=== PATIENT | male | born 1995 | race Caucasian/White ===

== ENCOUNTER 2017-07-31 10:55 | Emergency (ER) | payer OTHER ==
[~2017-07-31] VITALS: Ht 195.6 cm; Wt 113.6 kg
[2017-07-31 10:57] VITALS: BP 163/87; TEMP 98.5
[2017-07-31] MEDS ORDERED: AMOXICILLIN 8751 TAB PO (11:19)
[2017-07-31 11:45] VITALS: PULSE 103
== END 2017-07-31 11:45 | disposition home or self-care (01) ==
LOC: COL.ER 10:55
DX: K04.7 Periapical abscess without sinus (principal); F90.9 Attention-deficit hyperactivity disorder, unspecified type

== ENCOUNTER 2019-11-16 22:57 | Emergency (ER) | payer OTHER ==
[~2019-11-16] VITALS: Ht 195.6 cm; Wt 152.3 kg
[~2019-11-16 22:57] MED LIST: AMOXICILLIN 8751 TAB PO
[2019-11-17 00:05] LABS: STREP SCREEN NEGATIVE
[2019-11-17] MEDS ORDERED: ZITHROMAX 250M250 MG PO ×3 (00:06→00:58)
[2019-11-17 00:51] VITALS: BP 132/78; PULSE 112; TEMP 100.6
== END 2019-11-17 01:00 | disposition home or self-care (01) ==
LOC: COL.ER 22:57
PROVIDERS: Physician Assistant
DX: R50.9 Fever, unspecified (principal); R05 Cough; R53.81 Other malaise; J02.9 Acute pharyngitis, unspecified; Z20.828 Contact with and (suspected) exposure to other viral communicable diseases

== ENCOUNTER → 2020-10-15 | Outpatient (CLI) | payer OTHER ==
[~2020-10-15] MED LIST changes: +ZITHROMAX 250M250 MG PO
[2020-10-15 15:25] LABS: STOOL FOR OCCULT BLOOD NEGATIVE (NEGATIVE)
== END ==
LOC: COL.LAB 09:16
PROVIDERS: Internal Medicine Gastroenterology
DX: R19.7 Diarrhea, unspecified (principal)

== ENCOUNTER → 2021-09-24 | Outpatient (CLI) | payer OTHER | LOC: COL.RAD 11:27 | DX: N45.1 Epididymitis (principal) ==